=== PATIENT | female | born 1955 | race Caucasian/White ===

== ENCOUNTER 2018-08-24 06:51 | Day surgery (SDC) | payer BC, OTHER ==
[2018-08-23 14:17] VITALS: BMI 22.8
[2018-08-24 09:13] VITALS: PULSE 66
[2018-08-24 09:28] VITALS: BP 118/68; TEMP 97.8
--- NOTE | 2018-08-31 17:28 | PATH ---
Surgical Pathology Report Patient Name: ANDREA COLEMAN [facility]. Rec. #: [id number] /Age/Gender: 1955 (Age: 63) / F Account: [id number] Location: ASU-ENDOSCOPY Taken: 08/24/2018 Received: 08/24/2018 Reported: 08/31/2018 Physicians: Serenity Leung M.D. Specimen(s) Received A: BX 2ND PORTION DUODENUM AND BULB B: BX ANTRUM C: BX DISTAL TRANSVERSE COLON POLYP D: BX PROXIMAL TRANSVERSE COLON POLYP Clinical History Vomiting rule out ulcer, screening malignancy, family history of cancer Postoperative diagnosis: Atrophic gastritis, colon polyps Final Diagnosis A. DUODENUM, SECOND PORTION AND BULB, BIOPSY: DUODENAL MUCOSA WITH MILD ACUTE AND CHRONIC DUODENITIS. B. STOMACH, ANTRUM, BIOPSY: GASTRIC ANTRAL MUCOSA WITH MILD CHRONIC GASTRITIS. IMMUNOHISTOCHEMICAL STAIN FOR H. PYLORI IS NEGATIVE. C. DISTAL TRANSVERSE COLON, POLYP, BIOPSY: POLYPOID COLONIC MUCOSA WITH REACTIVE LYMPHOID HYPERPLASIA. SEE COMMENT. D. PROXIMAL TRANSVERSE COLON, POLYP, BIOPSY: POLYPOID COLONIC MUCOSA WITH REACTIVE LYMPHOID HYPERPLASIA. SEE COMMENT. Comment: H&E stained sections show lymphoid infiltrate with germinal center formation. The germinal centers show tingible-body macrophages and polarization. Immunostains performed with block D1 show normal compartmentation of B and T-cells. Germinal centers are negative for BCL-2. Cyclin the D1 is negative. Plasma cells are polyclonal. The findings are consistent with a reactive process. Clinicopathologic correlation is recommended. Case sent for consultation to Dr. Sean Combs M.D., Ph.D. from [facility], [place], [place] (Specimen #: [id number]), the diagnosis above reflects his opinion. Electronically Signed Ninfa Victor M.D. Gross Description A. Received in formalin, labeled "biopsy second portion of duodenum and bulb" are 4 shaikh, irregular portions of soft tissue ranging from 0.1-0.4 cm. in greatest dimension. The specimens are submitted in toto in one cassette. B. Received in formalin, labeled "biopsy antrum" are 3 shaikh, irregular portions of soft tissue ranging from 0.2-0.3 cm. in greatest dimension. The specimens are submitted in toto in one cassette. C. Received in formalin, labeled "biopsy polyp distal transverse" is a shaikh, irregular portion of soft tissue measuring 0.2 cm. in greatest dimension. The specimen is submitted in toto in one cassette. D. Received in formalin, labeled "biopsy polyp proximal transverse" is a shaikh, irregular portion of soft tissue measuring 0.2 cm. in greatest dimension. The specimen is submitted in toto in one cassette. 08/24/2018 [facility]08/24/2018
== END 2018-08-24 09:33 | disposition home or self-care (01) ==
LOC: JASU-ENDO 06:51
PROVIDERS: ATTEND Internal Medicine Gastroenterology
PROC: 0DB68ZX Excision of Stomach, Via Natural or Artificial Opening Endoscopic, Diagnostic (ICD-10-PCS; 2018-08-24)
PROC: 0DBL8ZX Excision of Transverse Colon, Via Natural or Artificial Opening Endoscopic, Diagnostic (ICD-10-PCS; principal; 2018-08-24 08:45)
DX: Z12.11 Encounter for screening for malignant neoplasm of colon (principal); Z80.0 Family history of malignant neoplasm of digestive organs; D12.3 Benign neoplasm of transverse colon; K64.8 Other hemorrhoids; K25.9 Gastric ulcer, unspecified as acute or chronic, without hemorrhage or perforation; R10.13 Epigastric pain; R11.10 Vomiting, unspecified
CPT/HCPCS: 88305-TC; 88342-TC